=== PATIENT | female | born 1985 | race Caucasian/White ===

== ENCOUNTER → 2017-11-10 | Outpatient (CLI) | payer BC ==
[~2017-11-10] MED LIST: ACE3 PO; DOXY-229 PO; FLUC150T40 PO; IBU800 PO; LORA10CA3 PO; METR45CR9 TP; MULT-1124 PO; SPIR25TA78 PO; [UNRECOGNIZED DRUG - CODE] PO
== END ==
LOC: LAB 14:35
PROVIDERS: ATTEND Obstetrics & Gynecology
DX: N71.1 Chronic inflammatory disease of uterus (principal)
CPT/HCPCS: 87070